=== PATIENT | female | born 1960 | race Caucasian/White ===

== ENCOUNTER 2020-07-10 12:44 | Emergency (ER) | payer OTHER, SELFPAY ==
[2020-07-10 12:48] VITALS: BP 158/87; PULSE 78; RESP 14; TEMP 36.4; O2SAT 99
[2020-07-10 13:12] LABS: Add Manual Diff / Slide Review NO; Basophils Absolute Auto 100 /uL (0-100); Basophils Percent Auto 0.8 % (0-2); Eosinophils Absolute Auto 100 /uL (0-450); Hematocrit 39.7 % (36-46); Hemoglobin 13.5 g/dL (12.0-16.0); Lymphocytes Absolute Auto 1400 /uL (1100-4500); Lymphocytes Percent Auto 19.6 % (25-40); Mean Corpuscular HGB Conc 34.1 % (30-36); Mean Corpuscular Hemoglobin 29.4 PG (26-34); Monocytes Absolute Auto 300 /uL (0-900); Monocytes Percent Auto 3.7 % (3-14); Neutrophils Absolute Auto 5500 /uL (1500-7000); Neutrophils Percent Auto 74.9 % (50-75); Platelet Count 334 X10^3/uL (150-400); Red Blood Cell Count 4.61 X10^6/uL (4.0-5.2); Red Cell Distribution Width 13.6 % (11.6-14.8); White Blood Cell Count 7.3 X10^3/uL (4.5-11.0)
[2020-07-10 13:24] LABS: PTT Partial Thromboplastin Tim 33 SECONDS (26.4-36.2)
[2020-07-10 13:25] LABS: Alanine Aminotransferase 21 IU/L (<35); Albumin 4.9 g/dL (3.5-5.0); Albumin Globulin Ratio 1.6 (1.0-2.8); Alkaline Phosphatase 80 U/L (38-126); Aspartate Aminotransferase 27 IU/L (14-36); BUN Creatinine Ratio 19.4 (6-22); Blood Urea Nitrogen 14 mg/dL (7-17); Calcium 9.9 mg/dL (8.4-10.2); Carbon Dioxide 24 mmol/L (22-32); Chloride 104 mmol/L (98-107); Estimated Glomerular Filt Rate > 60.0 mL/min (>60); Glucose 119 mg/dL (80-110); HEMOLYSIS < 15 (0-50); Lipase 100 U/L (23-300); Potassium 4.2 mmol/L (3.4-5.1); Sodium 138 mmol/L (137-145); Total Protein 7.9 g/dL (6.3-8.2)
--- NOTE | 2020-07-10 14:22 | ED.ABDPAIN ---
HPI - Abdominal Pain General Chief Complaint: Abdominal Pain Stated Complaint: intermittent side ache since 07/06 Time Seen by Provider: 07/10/20 13:12 Source: patient Mode of arrival: Ambulatory Limitations: no limitations History of Present Illness HPI narrative: 60-year-old woman with no significant medical history who has been having intermittent pain in the right side right posterior rib area for the last 5 days. Typically is worse with a deep breath last night she could not quite get comfortable. She finds that the pain waxes and wanes and does not seem to be specifically related to foods. She describes no fevers, vomiting, nausea, diarrhea, headache, chest pain, palpitations, dyspnea Related Data Home Medications Medication Instructions Recorded Confirmed No Known Home Medications 07/10/20 07/10/20 Allergies Allergy/AdvReac Type Severity Reaction Status Date / Time No Known Drug Allergies Allergy Verified 07/10/20 12:52 Review of Systems Review of Systems Narrative: Remainder of complete review of systems is otherwise unremarkable except for that included in the HPI. Patient History Social History Smoking Status: Never smoker Smoking Status: Never smoker alcohol intake frequency: 0-2 drinks per day Substance Use Type: does not use Exam Narrative Exam Narrative: General: Healthy appearing, in no acute distress. Able to give a complete and coherent history. Well-nourished well-developed HEENT: Moist mucous membranes, normal sclera with reactive pupils, Neck: No JVD, supple Respiratory: Lungs are clear to auscultation, no wheezing no rales no rhonchi. Full and symmetrical air movement Cardiac: Regular rate and rhythm no murmurs no bruits Abdomen: Soft, mild right upper quadrant tenderness without rebound or guarding, good bowel tones, no flank pain Skin: Warm and dry, no rashes Neurologic: Grossly neurologically intact with no obvious asymmetries or abnormalities Extremities: No trauma, well perfused Psych: Cooperative, appropriate insight and affect Initial Vital Signs Initial Vital Signs: Vital Signs Temperature 97.6 F 07/10/20 12:48 Pulse Rate 78 07/10/20 12:48 Respiratory Rate 14 07/10/20 12:48 Blood Pressure 158/87 H 07/10/20 12:48 Pulse Oximetry 99 07/10/20 12:48 Course Orders Ordered: ED Orders 07/10/20 12:53 EKG-12 Lead Stat 04/19/21 13:03 Complete Blood Count AUTO DIFF Stat Comprehensive Metabolic Panel Stat Lipase Stat Partial Thromboplastin Time Stat Prothrombin Time INR Stat 07/10/20 14:54 US abdomen limited Stat Vital Signs Vital signs: Vital Signs - 8 hr 07/10/20 12:48 Temperature 97.6 F Pulse Rate 78 Respiratory Rate 14 Blood Pressure 158/87 H Pulse Oximetry 99 MDM - Abdominal Pain Medical Records Attestation: I reviewed the patient's medical records. Lab Data Attestation: I reviewed the patient's lab results. Result diagrams: 07/10/20 13:03 07/10/20 13:03 Labs: Lab Results 07/10/20 07/10/20 07/10/20 Range/Units 13:03 13:03 13:03 WBC 7.3 (4.5-11.0) X10^3/uL RBC 4.61 (4.0-5.2) X10^6/uL Hgb 13.5 (12.0-16.0) g/dL Hct 39.7 (36-46) % MCV 86.0 (80-100) fL MCH 29.4 (26-34) PG MCHC 34.1 (30-36) % RDW 13.6 (11.6-14.8) % Plt Count 334 (150-400) X10^3/uL Neut % (Auto) 74.9 (50-75) % Lymph % (Auto) 19.6 L (25-40) % [place] % (Auto) 3.7 (3-14) % Eos % (Auto) 1.0 L (2-4) % Baso % (Auto) 0.8 (0-2) % Neut # (Auto) 5500 (7014-0967) /uL Lymph # (Auto) 1400 (8579-9789) /uL [place] # (Auto) 300 (0-900) /uL Eos # (Auto) 100 (0-450) /uL Baso # (Auto) 100 (0-100) /uL PT 12.0 (10.1-12.7) SECONDS INR 1.0 (0.9-1.3) APTT 33 (26.4-36.2) SECONDS Sodium 138 (137-145) mmol/L Potassium 4.2 (3.4-5.1) mmol/L Chloride 104 (98-107) mmol/L Carbon Dioxide 24 (22-32) mmol/L BUN 14 (7-17) mg/dL Creatinine 0.72 (0.52-1.04) mg/dL Estimated GFR > 60.0 (>60) mL/min BUN/Creatinine Ratio 19.4 (6-22) Glucose 119 H (80-110) mg/dL Calcium 9.9 (8.4-10.2) mg/dL Total Bilirubin 1.0 (0.2-1.3) mg/dL AST 27 (14-36) IU/L ALT 21 (<35) IU/L Alkaline Phosphatase 80 (38-126) U/L Total Protein 7.9 (6.3-8.2) g/dL Albumin 4.9 (3.5-5.0) g/dL Globulin 3.0 (1.7-4.1) g/dL Albumin/Globulin Ratio 1.6 (1.0-2.8) Lipase 100 (23-300) U/L Point of care testing: Urine Dip Bedside Urine Glucose Negative Bedside Urine Bilirubin - Negative Bedside Urine Ketone - Negative Urine Specific [place] 1.015 Bedside Urine Occult Blood - Negative Bedside Urine pH 6.0 Bedside Urine Protein - Negative Bedside Urine Urobilinogen - Negative Bedside Urine Nitrite - Negative Bedside Urine Leukocytes - Negative Esterase Imaging Data US - abdomen: Radiologist's Impression: FINDINGS: The liver appears normal. The gallbladder is stone filled but appears normal in wall thickness at 1.7 mm. IMPRESSION: Stone filled gallbladder, no biliary distension or acute cholecystitis. Liver appears normal. Dictated by: Valerio Murillo M.D. on 07/10/2020 at 15:05 ECG Data Attestation: I personally reviewed and interpreted this ECG as follows: Interpretation: Sinus rhythm at a rate of 66 Normal intervals, normal axis No acute ischemic changes MDM Narrative Medical decision making narrative: Otherwise healthy 60-year-old woman with 4-5 days of right upper quadrant pain. Ultrasound is consistent with cholelithiasis without acute cholecystitis. There is no evidence of pancreatitis or other acute infection. No evidence of pneumonia or acute coronary syndrome. Patient is pain-free at this time. Reviewed signs and symptoms of worsening gallbladder disease and reasons to return to the emergency department Wiill refer her to Dr. Osullivan, surgeon, for outpatient follow-up. Discharge Plan Departure Patient Disposition: Home Clinical Impression: Cholelithiasis Qualifiers: Cholelithiasis location: gallbladder Cholecystitis presence: without cholecystitis Biliary obstruction: without biliary obstruction Qualified Code(s): K80.20 - Calculus of gallbladder without cholecystitis without obstruction Instructions: DI for Gallstones Activity Restrictions/Additional Instructions: Thank you for coming in today You do have gallstones. This is what is causing the pain you been having in the right upper area of your abdomen over the last couple of days. The stones are not currently impacted and her gallbladder is not currently sick. This means that safe you to go home. You will need to follow-up with Dr. Osullivan, our surgeon, and talk about having your gallbladder removed in the near future. If you have pain that does not go away, develop a fever or began having uncontrolled vomiting you do need to return to the emergency department I wish you the best Prescriptions: No Action No Known Home Medications RF: 0 Referrals: Foster Osullivan MD [Physician] - Miscellaneous,MD Narda [Primary Care Provider] -
--- NOTE | 2020-07-10 14:54 | DI.US.S_ITS ---
PROCEDURE: US ABDOMEN LIMITED INDICATIONS: RUQ PAIN TECHNIQUE: Real-time focused scanning was performed of the abdomen, with image documentation. COMPARISON: None. FINDINGS: The liver appears normal. The gallbladder is stone filled but appears normal in wall thickness at 1.7 mm. IMPRESSION: Stone filled gallbladder, no biliary distension or acute cholecystitis. Liver appears normal. Dictated by: Valerio Murillo M.D. on 07/10/2020 at 15:05 Approved by: Valerio Murillo M.D. on 07/10/2020 at 15:05
[2020-07-10 15:55] VITALS: BP 131/74; PULSE 59; RESP 16; O2SAT 100
== END 2020-07-10 16:06 | disposition home or self-care (01) ==
PROVIDERS: Emergency Provider Emergency Medicine
DX: K80.20 Calculus of gallbladder without cholecystitis without obstruction (principal)
CPT/HCPCS: 36415; 76705; 80053; 81003; 83690; 85025; 85610; 85730; 93005; 93010; 99283; 99284

== ENCOUNTER → 2020-08-07 09:05 | Outpatient (CLI) | payer OTHER, SELFPAY ==
[2020-08-07 10:33] LABS: COVID19 -Nasal RAPID Negative (Negative)
== END ==
PROVIDERS: Visit Provider Surgery
DX: Z20.822 Contact with and (suspected) exposure to COVID-19 (principal)
CPT/HCPCS: 87635; C9803

== ENCOUNTER 2020-08-08 08:01 | Day surgery (SDC) | payer OTHER, SELFPAY ==
[2020-08-08] VITALS (25 sets, daily range): BP systolic 96–140; BP diastolic 62–83; PULSE 41–77; RESP 8–100; TEMP 35.9–36.8; O2SAT 10–100; BMI 32.2
--- NOTE | 2020-08-08 | PATH_ITS ---
[facility] Accession Number: [id number] . 01 Material submitted: . gallbladder - GALLBLADDER . 02 Diagnosis: Gallbladder, Cholecystectomy: Mild chronic cholecystitis and cholelithiasis. MRV 08/14/2020 1214 Local . 02 Electronically signed: . Christy Dong MD, Pathologist NPI- [id number] . 01 Gross description: . The specimen is received in formalin, labeled gallbladder and consists of a 7.5 x 3.0 x 3.0 cm intact gallbladder with a 0.3 cm in diameter cystic duct. The serosa is argueta-pink and smooth. Opening reveals argueta-green mucoid bile with multiple argueta multifaceted choleliths ranging from 0.2-0.9 cm and measuring 6.0 x 3.0 x 2.0 cm in aggregate. The mucosa is argueta-pink and trabeculated, and the wall thickness measures 0.1 cm. Front Desk Person sections are submitted to include the en face cystic duct margin (blue) in cassette A1. ([id number]) /MRV 08/09/2020 1056 Local . 02 Pathologist provided ICD-10: K81.1, K80.60 . 02 CPT . 928933 Performed at: [address] [facility] [address], [place], [place] [id number] MD Koby Slade MD Phone: [phone] Performed at: 02 [facility] [address] [place], [place] [id number] MD Sania Matthew MD Phone: [phone]
[2020-08-08] MEDS: SCOPOLAMINE 1 PATCH TOP (08:12)
[2020-08-08] MEDS: ACETAMINOPHEN 325 MG TABLET 975 MG PO (08:12)
[2020-08-08] MEDS: GABAPENTIN 300 MG CAPSULE PO (08:12)
[2020-08-08] MEDS: LACTATED RINGERS 1,000 ML 100 ML IV (08:33)
--- NOTE | 2020-08-08 08:36 | PM.PREOP ---
Pre-operative Note Interval Note History & Physical reviewed/Exam performed by Physician: Yes Changes to H&P: No
[2020-08-08] MEDS: CEFAZOLIN 1 GM VIAL 2 GM IV (09:04)
--- NOTE | 2020-08-08 09:39 | SUR.OPER ---
Supine on padded OR bed, head on pillow, safety belt at thigh, left arm padded and tucked at side. Right arm secured on padded arm board <90 degrees abduction. Legs uncrossed. Padded footboard in place. Tape over blanket to secure lower legs.
[2020-08-08] MEDS: BUPIVACAINE 0.25% (PF) VIAL 30 ML INJ (09:44)
--- NOTE | 2020-08-08 10:21 | PM.OP.1 ---
Operative Date/Time/Diagnoses Date of procedure: 08/08/20 Time of procedure: 10:21 Pre-op diagnosis: Biliary colic Post-op diagnosis: same Procedure & Clinicians Procedure: Laparoscopic cholecystectomy Same procedure as scheduled: Yes Indications: Biliary colic Surgeon: Foster Osullivan Anesthesia Type: General Operative Notes Findings: Critical view of safety. No evidence of acute cholecystitis Specimen(s): other (Gallbladder) Estimated Blood Loss (mL): 30 Procedure in detail: The patient was placed supine on the table and bilateral lower extremity compression devices were applied. Anesthesia was induced they were intubated with an endotracheal tube and received 2g of Ancef. A time-out was performed. They were prepped and draped in sterile fashion. An infraumbilical incision was made, the umbilical stalk was elevated and the fascia was sharply incised entering the abdomen atraumatically. A blunt tip 12mm balloon trocar was then inserted, pneumoperitoneum was established and inspection of the abdomen demonstrated no evidence of injury. They were placed head up and right side up and then a 11 mm port was placed high in the epigastrium and two 5mm in the right upper quadrant. Gallbladder was relatively normal in its appearance there was no evidence of acute cholecystitis. The gallbladder was grasped by the fundus and retracted over the liver and retracted laterally by the infundibulum. Using electrocautery the lateral plane between the gallbladder and the liver was opened towards the fundus. The gallbladder was then retracted laterally and the medial plane was developed in the same manner. With the gallbladder mobilized the bottom of the cystic plate was visualized. The hepatocystic triangle was meticulosly skeletonized using hook electrocautery of all fat and fibrous tissue from both the front and the back. Only two structures were then clearly seen entering the gallbladder the cystic duct and the cystic artery. With the critical view of safety fully established the cystic duct was clipped twice proximally and once distally using the 10 mm clip applied under direct visualization and then sharply divided. The cystic artery was divided in the same fashion. The gallbladder was removed from the liver bed using electro cautery. The liver bed was then inspected for hemostasis and this was achieved. The abdomen was irrigated with sterile saline and inspection was made that showed the clips in good position. The specimen was removed using Endo-Catch. The abdomen was desufflated. The umbilical fascia was closed with 0 Vicryl in a eanxzy-dx-pzasm fashion under direct visualization. Skin incisions were irrigated and closed with 4-0 Monocryl. 30 ml of 0.25% bupivacaine was infiltrated into the subcutaneous tissue of the incisions. The wounds were sealed with Dermabond. Patient emerged from anesthesia was extubated and transferred to recovery in stable condition. The sponge and instrument count at the end of the operation was correct. Complications: none Post-operative Condition: stable Disposition: same day surgery
[2020-08-08] MEDS: fentaNYL 100 MCG/2 ML INJ IV ×2 (10:50→11:21)
[2020-08-08] MEDS: LACTATED RINGERS 1,000 ML 42 ML IV (10:52)
[2020-08-08] MEDS: OXYCODONE IR 5 MG TABLET PO ×2 (11:24→12:07)
[2020-08-08] MEDS: HYDROMORPHONE 2 MG INJ IV (11:50)
== END 2020-08-08 12:35 | disposition home or self-care (01) ==
PROVIDERS: Referring Provider Surgery; Visit Provider Surgery
PROC: 0FT44ZZ Resection of Gallbladder, Percutaneous Endoscopic Approach (ICD-10-PCS; CPT 47562; principal; 2020-08-08 08:45)
DX: K80.10 Calculus of gallbladder with chronic cholecystitis without obstruction (principal); E66.9 Obesity, unspecified; Z68.32 Body mass index [BMI] 32.0-32.9, adult
CPT/HCPCS: 47562; 82962; J0690; J1100; J1170; J1885; J2250; J2405; J2704; J3010

== ENCOUNTER → 2022-10-04 11:42 | Outpatient (CLI) | payer OTHER, SELFPAY ==
--- NOTE | 2022-10-04 11:45 | DI.RAD.S_ITS ---
PROCEDURE: XR DEXA AXIAL SKELETON INDICATIONS: ROUTINE SCREENING; Screening for osteoporosis COMPARISON: None. FINDINGS: This blank DEXA report has been sent in error by the PACS system. The correct and complete report will be forthcoming in 1-2 days. Thank you for your patience and understanding. Dictated by: Brennon Aguilera M.D. on 10/04/2022 at 14:20 Approved by: Brennon Aguilera M.D. on 10/04/2022 at 14:20
--- NOTE | 2022-10-04 11:45 | DI.MG.S_ITS ---
BILATERAL DIGITAL SCREENING MAMMOGRAM 3D/2D WITH CAD: 10/04/2022 CLINICAL: Routine screening. Default Baseline exam. No prior exams were available for comparison. Both breasts are heterogeneously dense, which may obscure small masses (category c / 51-75% glandular tissue). Current study was also evaluated with a Computer Aided Detection (CAD) system. There is a 1.1 cm oval mass with grouped dystrophic calcifications in the right breast at 11 o'clock middle depth. There also is an oval mass in the right breast at 3 o'clock middle depth. There is an oval mass in the left breast at 1 o'clock posterior depth. No other significant masses or calcifications are seen in either breast. IMPRESSION: INCOMPLETE: NEEDS ADDITIONAL IMAGING EVALUATION The 1.1 cm oval mass in the right breast at 11 o'clock middle depth resembles a degenerating fibroadenoma and is indeterminate. Additional views with possible ultrasound are recommended. The oval mass in the right breast at 3 o'clock middle depth is indeterminate. Additional views with possible ultrasound are recommended. The oval mass in the left breast at 1 o'clock posterior depth is indeterminate. Additional views with possible ultrasound are recommended. Based on the Tyrer Cuzick model (a risk assessment model) the patient's lifetime risk is 8.1% and her 10 year risk is 3.6%. According to the ACR, ACS, and NCCN guidelines, an annual breast MRI exam along with mammogram is recommended if the patient's lifetime risk is 20% or greater. This exam was interpreted at Station ID: [id number]. NOTE: For mammograms, a report in lay terms will be sent to the patient. Approximately 15% of breast malignancies will not be visualized mammographically. In the management of a palpable breast mass, a negative mammogram must not discourage biopsy of a clinically suspicious lesion. Electronically Signed By: Tu Erazo M.D. lc/:10/14/2022 09:31:05 letter sent: Additional Imaging Needed ACR BI-RADS Category 0: Incomplete 3340F
--- NOTE | 2022-10-04 12:15 | DI.DEXA.S_ITS ---
Bone Density Report Name: HAN TURNER Age: 62 Sex: Female Ethnicity: White Date of : 1960 Indication: postmenopausal; screening for osteoporosis; Referring Provider: KSENIA MCFARLAND Study: Bone densitometry was performed. Exam Date: October 04, 2022 Accession number: [id number] Bone Density: Region BMD T-score Z-score Classification AP Spine(L1-L4) 0.761 -2.6 -0.9 Osteoporosis Femoral Neck (Left) 0.647 -1.8 -0.4 Osteopenia Total Hip (Left) 0.720 -1.8 -0.7 Osteopenia Total Forearm (Left) 0.487 -1.7 -0.2 Osteopenia 1/3 Forearm (Left) 0.643 -0.9 0.7 Normal UD Forearm (Left) 0.330 -1.9 -0.8 Osteopenia World Health Organization criteria for BMD impression classify patients as: Normal (T-score at or above -1.0), Osteopenia (T-score between -1.0 and -2.5), or Osteoporosis (T-score at or below -2.5). 10-year Fracture Risk: FRAX not reported because: Some T-score for Spine Total or Hip Total or Femoral Neck at or below -2.5 Impression: The patient has osteoporosis, based on the Total Spine T-score. Discussion: INCREASED RISK OF FRACTURE. BONE DENSITY IS UNDESIRABLY LOW AT ONE OR MORE SKELETAL SITES, CONSISTENT WITH POSTMENOPAUSAL OSTEOPOROSIS. This patient's lowest T-score meets the World Health Organization's (WHO) criteria for osteoporosis at one or more sites (T-score -2.5 or below). In untreated patients, the risk of osteoporotic fracture increases approximately two-fold for each 1.0 SD decrease in T-score. Low bone density is not the only risk factor for fracture; also consider factors such as patient's age, frailty or poor health, risk of falling, risk of injury, previous osteoporotic fracture, family history of osteoporosis, cigarette smoking, low body weight, etc. Not everyone with low bone mineral density has osteoporosis; osteomalacia and other metabolic bone disorders should also be considered. Patients who have osteoporosis should be evaluated for specific diseases and conditions (secondary causes) that may cause or contribute to bone loss. The [place] Association [employer] Clinical Endocrinologists (AACE) and National Osteoporosis Foundation (NOF) recommend pharmacologic intervention for all postmenopausal women whose T-score is in this range. The patient should follow a healthful lifestyle (good nutrition with adequate calcium and vitamin D, and appropriate weight-bearing exercise). Follow-Up: Consider a repeat BMD and Vertebral Fracture Assessment (VFA) exam in 2 years or sooner if medically necessary, to reassess this patient's status. Reported by: DONA PIERRE M.D. on 10/04/2022 12:30:00 PM.
== END ==
PROVIDERS: PCP Nurse Practitioner Family; Referring Provider Nurse Practitioner Family; Visit Provider Nurse Practitioner Family
DX: Z12.31 Encounter for screening mammogram for malignant neoplasm of breast (principal); Z13.820 Encounter for screening for osteoporosis; Z78.0 Asymptomatic menopausal state; M81.0 Age-related osteoporosis without current pathological fracture
CPT/HCPCS: 77063; 77067; 77080; 77081

== ENCOUNTER → 2023-04-10 09:26 | Outpatient (CLI) | payer OTHER, SELFPAY ==
--- NOTE | 2023-04-10 09:27 | DI.MG.S_ITS ---
BILATERAL DIGITAL DIAGNOSTIC MAMMOGRAM 3D/2D: 04/10/2023 CLINICAL: Additional evaluation requested from prior study. Comparison is made to exam dated: 10/04/2022 mammogram - [facility]. Both breasts are heterogeneously dense, which may obscure small masses (category c / 51-75% glandular tissue). There is a 1.1 cm oval mass with a circumscribed margin and grouped dystrophic calcifications in the right breast at 10 o'clock middle depth. This is seen in additional views. There also is an oval mass with a circumscribed margin in the right breast at 4 o'clock middle depth. This is seen in additional views. There is an oval low density mass with a circumscribed margin in the left breast at 3 o'clock posterior depth. This is seen in additional views. No other significant masses or calcifications are seen in either breast. IMPRESSION: INCOMPLETE: NEEDS ADDITIONAL IMAGING EVALUATION The 1.1 cm oval mass in the right breast at 10 o'clock middle depth resembles a degenerating fibroadenoma and is indeterminate. An ultrasound is recommended. The oval mass in the right breast at 4 o'clock middle depth is indeterminate. An ultrasound is recommended. The oval low density mass in the left breast at 3 o'clock posterior depth is indeterminate. An ultrasound is recommended. Based on the Tyrer Cuzick model (a risk assessment model) the patient's lifetime risk is 7.8% and her 10 year risk is 3.6%. According to the ACR, ACS, and NCCN guidelines, an annual breast MRI exam along with mammogram is recommended if the patient's lifetime risk is 20% or greater. This exam was interpreted at Station ID: [id number]. NOTE: For mammograms, a report in lay terms will be sent to the patient. Approximately 15% of breast malignancies will not be visualized mammographically. In the management of a palpable breast mass, a negative mammogram must not discourage biopsy of a clinically suspicious lesion. Electronically Signed By: Ernst ortiz/sushila:04/10/2023 12:47:48 ACR BI-RADS Category 0: Incomplete 3340F
--- NOTE | 2023-04-10 09:28 | DI.US.S_ITS ---
LIMITED ULTRASOUND OF RIGHT BREAST AND AXILLA: 04/10/2023 CLINICAL: Patient returns today to evaluate a focal asymmetries in the right breast. Comparison is made to exams dated: 04/10/2023 mammogram and 10/04/2022 mammogram - [facility]. Color flow ultrasound of the right breast 3-4 o'clock, 10-11 o'clock, and axilla regions was performed. Johnson scale images of the real-time examination were reviewed. There is a 1.2 cm x 1.1 cm x 0.7 cm oval mass with a circumscribed margin in the right breast at 10 o'clock posterior depth 6 cm from the nipple. This oval mass is hypoechoic. This correlates with mammography findings. There are calcifications within the mass. Color flow imaging demonstrates that there is no increase in vascularity. There also is a 0.7 cm x 0.5 cm x 0.4 cm oval mass with a circumscribed margin in the right breast at 4 o'clock middle depth 3 cm from the nipple. This oval mass is anechoic and hypoechoic with fatty hilum and posterior acoustic enhancement. This correlates with mammography findings. No significant abnormalities were seen sonographically in the right axilla. IMPRESSION: PROBABLY BENIGN The 1.2 cm x 1.1 cm x 0.7 cm oval mass in the right breast at 10 o'clock posterior depth most likely is a fibroadenoma and is probably benign. The 0.7 cm x 0.5 cm x 0.4 cm oval mass in the right breast at 4 o'clock middle depth resembles a lymph node and is probably benign. A follow-up ultrasound in 6 months is recommended to demonstrate stability. This exam was interpreted at Station ID: [id number]. Electronically Signed By: Ernst ortiz/sushila:04/10/2023 12:51:12 letter sent: Followup Recommended Ultrasound BI-RADS: 3 Probably benign
--- NOTE | 2023-04-10 09:28 | DI.US.S_ITS ---
LIMITED ULTRASOUND OF LEFT BREAST AND AXILLA: 04/10/2023 CLINICAL: Patient returns today to evaluate a focal asymmetry in the left breast. Comparison is made to exams dated: 04/10/2023 mammogram and 10/04/2022 mammogram - [facility]. Color flow ultrasound of the left breast 3 o'clock, and axilla regions was performed. Johnson scale images of the real-time examination were reviewed. There is a 0.9 cm x 0.9 cm x 0.4 cm oval mass with a circumscribed margin in the left breast at 3 o'clock posterior depth 5 cm from the nipple. This oval mass displays posterior acoustic enhancement. This correlates with mammography findings. Color flow imaging demonstrates that there is no increase in vascularity. No significant abnormalities were seen sonographically in the left axilla. IMPRESSION: PROBABLY BENIGN The 0.9 cm x 0.9 cm x 0.4 cm oval mass in the left breast most likely is a complicated cyst or a fibroadenoma and is probably benign. A follow-up ultrasound in 6 months is recommended to demonstrate stability. This exam was interpreted at Station ID: [id number]. Electronically Signed By: Ernst ortiz/sushila:04/10/2023 12:53:22 Ultrasound BI-RADS: 3 Probably benign
== END ==
LOC: MAMMO 09:26
PROVIDERS: PCP Nurse Practitioner Family; Referring Provider Nurse Practitioner Family; Visit Provider Nurse Practitioner Family
DX: R92.8 Other abnormal and inconclusive findings on diagnostic imaging of breast (principal); R92.333 Mammographic heterogeneous density, bilateral breasts; N63.25 Unspecified lump in the left breast, overlapping quadrants; N63.11 Unspecified lump in the right breast, upper outer quadrant; N63.14 Unspecified lump in the right breast, lower inner quadrant
CPT/HCPCS: 76642; 77066; G0279

== ENCOUNTER → 2023-12-04 10:11 | Outpatient (CLI) | payer OTHER, SELFPAY ==
--- NOTE | 2023-12-04 | DI.MG.S_ITS ---
BILATERAL DIGITAL DIAGNOSTIC MAMMOGRAM 3D/2D SHORT-TERM FOLLOW-UP: 12/04/2023 CLINICAL: Short term follow up for bilateral breasts. Comparison is made to exams dated: 04/10/2023 mammogram and 10/04/2022 mammogram - [facility]. The breasts are heterogeneously dense, which may obscure small masses (category c / 51-75% glandular tissue). There is a 1.1 cm oval mass with a circumscribed margin and grouped dystrophic calcifications in the right breast at 10 o'clock middle depth. This is not significantly changed. There also is an oval mass with a circumscribed margin in the right breast at 4 o'clock middle depth. This is not significantly changed. There is an oval low density mass with a circumscribed margin in the left breast at 3 o'clock posterior depth. This is not significantly changed. No other significant masses or calcifications are seen in either breast. IMPRESSION: INCOMPLETE: NEED ADDITIONAL IMAGING EVALUATION The 1.1 cm oval mass in the right breast at 10 o'clock middle depth resembles a degenerating fibroadenoma and is indeterminate. An ultrasound is recommended for further evaluation and is scheduled to immediately follow this examination. The oval mass in the right breast at 4 o'clock middle depth is indeterminate. An ultrasound is recommended for further evaluation and is scheduled to immediately follow this examination. The oval low density mass in the left breast at 3 o'clock posterior depth is indeterminate. An ultrasound is recommended for further evaluation and is scheduled to immediately follow this examination. Based on the Tyrer Cuzick model (a risk assessment model) the patient's lifetime risk is 7.8% and her 10 year risk is 3.6%. According to the ACR, ACS, and NCCN guidelines, an annual breast MRI exam along with mammogram is recommended if the patient's lifetime risk is 20% or greater. This exam was interpreted at Station ID: [id number]. NOTE: For mammograms, a report in lay terms will be sent to the patient. Approximately 15% of breast malignancies will not be visualized mammographically. In the management of a palpable breast mass, a negative mammogram must not discourage biopsy of a clinically suspicious lesion. Electronically Signed By: Lc Bains M.D. aty/:12/04/2023 13:47:16 ACR BI-RADS Category 0: Incomplete: Need Additional Imaging Evaluation 3340F
--- NOTE | 2023-12-04 10:12 | DI.US.S_ITS ---
LIMITED ULTRASOUND OF RIGHT BREAST: 12/04/2023 CLINICAL: Right breast 6 month follow up. Comparison is made to exams dated: 04/10/2023 ultrasound, 04/10/2023 mammogram, and 10/04/2022 mammogram - [facility]. Color flow and real-time ultrasound of the right breast 4 o'clock and 10 o'clock regions were performed. Johnson scale images of the real-time examination were reviewed. There is a 1.3 cm x 1.2 cm x 0.6 cm oval mass with a circumscribed margin in the right breast at 10 o'clock posterior depth 6 cm from the nipple. This oval mass is hypoechoic. This abnormality is not significantly changed and correlates with mammography findings. There are calcifications within the mass. Color flow imaging demonstrates that there is no increase in vascularity. There also is a 0.7 cm x 0.4 cm x 0.8 cm oval mass with a circumscribed margin in the right breast at 4 o'clock middle depth 3 cm from the nipple. This oval mass is anechoic and hypoechoic with fatty hilum and posterior acoustic enhancement. This abnormality is not significantly changed and correlates with mammography findings. IMPRESSION: PROBABLY BENIGN The 1.3 cm x 1.2 cm x 0.6 cm oval mass in the right breast at 10 o'clock posterior depth most likely is a fibroadenoma and is probably benign. The 0.7 cm x 0.4 cm x 0.8 cm oval mass in the right breast at 4 o'clock middle depth resembles a lymph node and is probably benign. A follow-up mammogram and an ultrasound in 12 months is recommended to document detention stability. Findings and recommendations were conveyed to the patient during today's evaluation. This exam was interpreted at Station ID: [id number]. Electronically Signed By: Lc Bains M.D. aty/:12/04/2023 13:57:05 letter sent: Followup Recommended ACR BI-RADS Category 3: Probably Benign [id number]
--- NOTE | 2023-12-04 10:12 | DI.US.S_ITS ---
LIMITED ULTRASOUND OF LEFT BREAST: 12/04/2023 CLINICAL: Left breast 6 month follow up. Comparison is made to exams dated: 04/10/2023 ultrasound, 04/10/2023 mammogram, and 10/04/2022 mammogram - [facility]. Color flow and real-time ultrasound of the left breast 3 o'clock region were performed. Johnson scale images of the real-time examination were reviewed. There is a 1.1 cm x 0.9 cm x 0.3 cm oval mass with a circumscribed margin in the left breast at 3 o'clock posterior depth 5 cm from the nipple. This oval mass displays posterior acoustic enhancement. This abnormality is not significantly changed and correlates with mammography findings. Color flow imaging demonstrates that there is no increase in vascularity. IMPRESSION: PROBABLY BENIGN The 1.1 cm x 0.9 cm x 0.3 cm oval mass in the left breast most likely is a complicated cyst or a fibroadenoma and is probably benign. A follow-up mammogram and an ultrasound in 12 months is recommended to document snf stability. Findings and recommendations were conveyed to the patient during today's evaluation. This exam was interpreted at Station ID: [id number]. Electronically Signed By: Lc Bains M.D. aty/:12/04/2023 13:56:30 letter sent: Followup Recommended ACR BI-RADS Category 3: Probably Benign [id number]
== END ==
LOC: US 10:12
PROVIDERS: PCP Nurse Practitioner Family; Referring Provider Nurse Practitioner Family; Visit Provider Nurse Practitioner Family
DX: R92.8 Other abnormal and inconclusive findings on diagnostic imaging of breast (principal); R92.333 Mammographic heterogeneous density, bilateral breasts; N63.25 Unspecified lump in the left breast, overlapping quadrants; N63.11 Unspecified lump in the right breast, upper outer quadrant; N63.14 Unspecified lump in the right breast, lower inner quadrant
CPT/HCPCS: 76642; 77066; G0279